=== PATIENT | female | born 1940 | race African-American/Black ===

== ENCOUNTER → 2020-12-20 | Outpatient (CLI) | payer MEDICARE, MEDICAID ==
[~2020-12-20] MED LIST: CEPH-569 PO; CLIN300C12 PO; FENTANYL CITRATE/PF 50MCG/ML 2ML VIAL ONE; FERR1TAB51; FERR324T4 PO; GLYCOPYRROLATE 0.2 MG/ML 2ML VIAL ONE; LEVO75TA7 PO; METF-414 PO; METOCLOPRAMIDE HCL 10MG/2ML VIAL ONE; MIDAZOLAM HCL 2 MG/2 ML VIAL ONE; ONDANSETRON HCL 4MG/2ML INJ ONE; PRAV10TA35 PO; PROPOFOL 200MG/20ML VIAL IV ONE; RAMI2.5C54 PO; RAMI5CAP65 PO; SUCCINYLCHOLINE CHLORIDE 200MG/10ML IV ONE
== END | disposition home or self-care (01) ==
LOC: LAB 10:51
PROVIDERS: ATTEND Urology
DX: Z01.812 Encounter for preprocedural laboratory examination (principal); Z20.822 Contact with and (suspected) exposure to COVID-19
CPT/HCPCS: 87426

== ENCOUNTER → 2020-12-22 | Day surgery (SDC) | payer MEDICARE, MEDICAID ==
[~2020-12-22] VITALS: Ht 162.6 cm; Wt 90.7 kg
[~2020-12-22] MED LIST changes: -CEPH-569 PO; -CLIN300C12 PO; -FENTANYL CITRATE/PF 50MCG/ML 2ML VIAL ONE; -FERR1TAB51; -GLYCOPYRROLATE 0.2 MG/ML 2ML VIAL ONE; +HYDROMORPHONE HCL/PF 2MG/ML CPJ IV PRN; +LACTATED RINGERS 1,000 ML IV SCH; +MEPERIDINE HCL/PF 25MG/ML CPJ IV PRN; -METOCLOPRAMIDE HCL 10MG/2ML VIAL ONE; -MIDAZOLAM HCL 2 MG/2 ML VIAL ONE; +MORPHINE SULFATE 2 MG/ML CPJ (NOT FOR IM USE) IV PRN; +ONDANSETRON HCL 4MG/2ML INJ IV PRN; -ONDANSETRON HCL 4MG/2ML INJ ONE; -PRAV10TA35 PO; -PROPOFOL 200MG/20ML VIAL IV ONE; -RAMI2.5C54 PO; +SODIUM CHLORIDE 0.9% 1,000 ML IV ONE; -SUCCINYLCHOLINE CHLORIDE 200MG/10ML IV ONE
== END | disposition home or self-care (01) ==
LOC: OR 05:45
PROVIDERS: ATTEND Urology
DX: N20.0 Calculus of kidney (principal); R31.0 Gross hematuria; I10 Essential (primary) hypertension; E11.9 Type 2 diabetes mellitus without complications; E78.00 Pure hypercholesterolemia, unspecified; E03.9 Hypothyroidism, unspecified; M19.90 Unspecified osteoarthritis, unspecified site; Z79.82 Long term (current) use of aspirin; Z79.84 Long term (current) use of oral hypoglycemic drugs; Z79.899 Other long term (current) drug therapy; Z98.890 Other specified postprocedural states
CPT/HCPCS: 50590; 82962; J0330; J2250; J2405; J2704; J2765; J3010; J3490